=== PATIENT | male | born 1980 | race Caucasian/White ===

== ENCOUNTER 2019-09-06 15:20 | Emergency (ER) | payer SELFPAY ==
--- NOTE | 2019-09-06 15:42 | EDM.PDOC ---
ED HPI GENERAL MEDICAL PROBLEM - General Chief Complaint: Cardiovascular Problem Stated Complaint: LORA LO Time Seen by Provider: 09/06/19 15:27 Source of Information: Reports: Patient History Limitations: Reports: No Limitations - History of Present Illness INITIAL COMMENTS - FREE TEXT/NARRATIVE: Rui Gonzalez 39-year-old male who presents the emergency room chief complaints of high resting pulse rate. Patient states he was sitting at home when he felt like his heart was racing he checked his pulse and it was elevated. He denies any chest pain or shortness of breath. Patient has a history of tachycardia and currently is taking Lopressor and HCTZ. His primary care doctor is Dr. Dick who is managing this. Onset: Today, Sudden Onset Date: 09/06/19 Onset Time: 14:00 Duration: Intermittent Location: Reports: Chest Severity: Mild Improves with: Reports: None Worsens with: Reports: None Associated Symptoms: Denies: Chest Pain, Diaphoresis, Fever/Chills, Nausea/ Vomiting, Shortness of Breath - Related Data Allergies Allergy/AdvReac Type Severity Reaction Status Date / Time Penicillins Allergy Severe Rash Verified 09/06/19 15:26 Home Meds: Home Meds Metoprolol Succinate 50 mg PO DAILY 09/06/19 [History] hydroCHLOROthiazide [Hydrochlorothiazide] 12.5 mg PO DAILY 09/06/19 [History] Past Medical History Cardiovascular History: Reports: Hypertension - Past Surgical History GI Surgical History: Reports: Cholecystectomy Social & Family History - Tobacco Use Smoking Status *Q: Never Smoker Second Hand Smoke Exposure: No - Caffeine Use Caffeine Use: Reports: None - Recreational Drug Use Recreational Drug Use: No ED ROS GENERAL - Review of Systems Review Of Systems: See Below Constitutional: Denies: Fever, Chills Respiratory: Denies: Shortness of Breath Cardiovascular: Reports: Palpitations, Other (fast heart beat). Denies: Chest Pain Endocrine: Reports: No Symptoms GI/Abdominal: Reports: No Symptoms : Reports: No Symptoms Musculoskeletal: Reports: No Symptoms Skin: Reports: No Symptoms Neurological: Reports: No Symptoms Psychiatric: Reports: No Symptoms Hematologic/Lymphatic: Reports: No Symptoms Immunologic: Reports: No Symptoms ED EXAM, GENERAL - Physical Exam Exam: See Below Exam Limited By: No Limitations General Appearance: Alert, WD/WN, No Apparent Distress Respiratory/Chest: No Respiratory Distress, Lungs Clear, Normal Breath Sounds, No Accessory Muscle Use, Chest Non-Tender Cardiovascular: Normal Peripheral Pulses, Regular Rate, Rhythm, No Edema, No Gallop, No JVD, No Murmur, No Rub GI/Abdominal: Normal Bowel Sounds, Soft, Non-Tender, No Organomegaly, No Distention, No Abnormal Bruit Back Exam: Normal Inspection, Full Range of Motion Extremities: Normal Inspection, Normal Range of Motion, Non-Tender, No Pedal Edema, Normal Capillary Refill Neurological: Alert, Oriented, Normal Cognition, Normal Gait, No Motor/Sensory Deficits Psychiatric: Normal Affect, Normal Mood Skin Exam: Warm, Dry, Intact, Normal Color, No Rash Lymphatic: No Adenopathy EKG INTERPRETATION EKG Date: 09/06/19 Time: 15:30 Rhythm: NSR Rate (Beats/Min): 93 Course - Vital Signs Text/Narrative:: Rui [id number] male who presents the emergency room chief complaints of fast heart rate. He reports about 2 hours ago he felt like his heart was racing. He denies any chest pain, shortness of breath lightheadedness or syncope. We will order an EKG to evaluate his rhythm, CBC chemistry and magnesium. Patient is not short of breath saturation is 99% on room air I do not feel he needs a chest x-ray at this time. Last Recorded V/S: Last Vital Signs Temp 98 F 09/06/19 15:24 Pulse 90 09/06/19 15:24 Resp 12 09/06/19 15:24 BP 124/82 09/06/19 15:24 Pulse Ox 99 09/06/19 15:24 - Orders/Labs/Meds Orders: Active Orders 24 hr Category Date Time Status EKG Documentation Completion [RC] STAT Care 09/06/19 15:34 Active Holter Monitor 24 Hours [RC] .PRN Care 09/06/19 16:40 Active Labs: Laboratory Tests 09/06/19 09/06/19 09/06/19 Range/Units 15:25 15:25 15:25 WBC 7.98 (4.23-9.07) K/mm3 RBC 5.13 (4.63-6.08) M/mm3 Hgb 15.9 (13.7-17.5) gm/dl Hct 46.1 (40.1-51.0) % MCV 89.9 (79.0-92.2) fl MCH 31.0 (25.7-32.2) pg MCHC 34.5 (32.2-35.5) g/dl RDW Std Deviation 42.4 (35.1-43.9) fL Plt Count 380 H (163-337) K/mm3 MPV 9.5 (9.4-12.3) fl Neut % (Auto) 67.2 (34.0-67.9) % Lymph % (Auto) 19.9 L (21.8-53.1) % [place] % (Auto) 6.6 (5.3-12.2) % Eos % (Auto) 5.8 (0.8-7.0) Baso % (Auto) 0.4 (0.1-1.2) % Neut # (Auto) 5.36 (1.78-5.38) K/mm3 Lymph # (Auto) 1.59 (1.32-3.57) K/mm3 [place] # (Auto) 0.53 (0.30-0.82) K/mm3 Eos # (Auto) 0.46 (0.04-0.54) K/mm3 Baso # (Auto) 0.03 (0.01-0.08) K/mm3 Sodium 141 (136-145) mEq/L Potassium 4.0 (3.5-5.1) mEq/L Chloride 103 (98-107) mEq/L Carbon Dioxide 26 (21-32) mEq/L Anion Gap 16.0 H (5-15) BUN 11 (7-18) mg/dL Creatinine 0.9 (0.7-1.3) mg/dL Est Cr Clr Drug Dosing 102.01 mL/min Estimated GFR (MDRD) > 60 (>60) mL/min BUN/Creatinine Ratio 12.2 L (14-18) Glucose 109 H (74-106) mg/dL Calcium 9.8 (8.5-10.1) mg/dL Magnesium 1.6 L (1.8-2.4) mg/dl Total Bilirubin 0.6 (0.2-1.0) mg/dL AST 23 (15-37) U/L ALT 56 (16-63) U/L Alkaline Phosphatase 74 (46-116) U/L Total Protein 7.5 (6.4-8.2) g/dl Albumin 4.2 (3.4-5.0) g/dl Globulin 3.3 gm/dL Albumin/Globulin Ratio 1.3 (1-2) TSH 3rd Generation 3.747 H (0.358-3.74) uIU/mL Meds: Medications Discontinued Medications Generic Name Dose Route Start Last Admin Trade Name Jorje PRN Reason Stop Dose Admin Magnesium Oxide 400 mg 09/06/19 16:42 Magnesium Oxide PO 09/06/19 16:43 ONETIME ONE - Re-Assessments/Exams Free Text/Narrative Re-Assessment/Exam: 09/06/19 16:15 EKG revealed NSR rate 93 no ectopy. 09/06/19 16:31 Labs as follows wound WBC 7.98 H&H 15.9 and 46.1 platelet count 380 sodium 141, potassium 4.0, chloride 103, glucose 109, calcium 9.8, magnesium 1.6, CO2 26, bun 11 and creatinine 0.9. I will medicate with magnesium. 09/06/19 17:16 TSH is elevated at 3.747. Reports that he feels better. His heart rate is 85 with sinus rhythm. I will discharge home with a Holter monitor. Instructed patient to follow-up with Dr. Dick by next week for further evaluation and treatment. Patient verbalized understanding and is comfortable plan for discharge. Patient stable time discharge. Departure - Departure Time of Disposition: 17:17 Disposition: Home, Self-Care 01 Clinical Impression: Palpitations Instructions: Palpitations, [id number] Referrals: PCP,None [Primary Care Provider] - Forms: ED Department Discharge Additional Instructions: You were seen and evaluated for increased heart beat. Your EKG revealed normal sinus rhythm. Your labs were unremarkable except for your magnesium was slightly low your TSH level was high. You were to wear your Holter monitor for the next 24 hours and follow-up with Dr. James next week for further evaluation and to review the results of your monitor. Return to the emergency room for any new or acute worsening symptoms. Sepsis Event Note - Evaluation Sepsis Screening Result: No Definite Risk - Focused Exam Vital Signs: Vital Signs Temp Pulse Resp BP Pulse Ox 09/06/19 15:24 98 F 90 12 124/82 99 Date Exam was Performed: 09/06/19 Time Exam was Performed: 17:16 - My Orders Last 24 Hours: My Active Orders 09/06/19 15:34 EKG Documentation Completion [RC] STAT 09/06/19 16:40 Holter Monitor 24 Hours [RC] .PRN - Assessment/Plan Last 24 Hours: My Active Orders 09/06/19 15:34 EKG Documentation Completion [RC] STAT 09/06/19 16:40 Holter Monitor 24 Hours [RC] .PRN
[2019-09-06] MEDS ORDERED: Magnesium Oxide 400 MG Tab PO ONE (16:42)
== END 2019-09-06 18:32 | disposition home or self-care (01) ==
LOC: JD.ED 15:20
DX: R00.2 Palpitations (principal); I10 Essential (primary) hypertension; Z88.0 Allergy status to penicillin; Z79.899 Other long term (current) drug therapy
CPT/HCPCS: 36415; 80053; 83735; 84443; 85025; 93005; 93225; 93226; 99285; A9270; 93010; 99284